=== PATIENT | female | born 1950 | race Hispanic/Latino ===

== ENCOUNTER 2017-09-07 22:10 | Observation (INO) | payer MEDICARE ==
[~2017-09-07] VITALS: Ht 154.9 cm; Wt 82.1 kg
[2017-09-07 22:23] LABS: APPEARANCE,URINE Cloudy (CLEAR); BILIRUBIN,URINE Negative (NEGATIVE); COLOR,URINE Yellow (YELLOW); GLUCOSE, URINE (UA) TRACE mg/dL (NEGATIVE); KETONES,URINE Negative (NEGATIVE); LEUKOCYTE ESTERASE ,URINE Moderate (NEGATIVE); NITRATE,URINE Positive (NEGATIVE); OCCULT BLOOD,URINE Small (NEGATIVE); PROTEIN,URINE Negative (NEGATIVE)
[2017-09-07 22:32] LABS: BACTERIA,URINE Moderate /HPF (None Seen); SQUAMOUS EPITHELIAL CELL,UR 0-2 /HPF (0-2)
[2017-09-07 22:40] LABS: BASOPHILS % (AUTO) 0.4 % (0.0-5.0); HEMATOCRIT 31.6 % (36-48); LYMPHOCYTES % (AUTO) 5.3 % (21.0-51.0); MEAN CORPUSCULAR HEMOGLOBIN 34.6 pg (27.0-33.0); MEAN CORPUSCULAR HGB CONC 34.6 g/dL (32.0-36.0); MONOCYTES % (AUTO) 10.4 % (3.0-13.0); NEUTROPHILS % (AUTO) 83.9 % (40.0-77.0); PLATELET COUNT (AUTO) 288 K/uL (130-400); RED BLOOD CELL COUNT(AUTO) 3.16 MIL/uL (4.00-5.50); WHITE BLOOD COUNT (AUTO) 25.2 K/uL (4.8-10.8)
[2017-09-07] MEDS ORDERED: ONDANSETRON HCL 4 MG/2 ML VIAL ONE (22:41)
[2017-09-07 22:51] LABS: CREATININE 1.5 mg/dL (0.5-1.5); POTASSIUM 4.2 mmol/L (3.5-5.1)
[2017-09-07 22:56] LABS: BILIRUBIN,TOTAL 0.3 mg/dL (0.2-1.0); TOTAL PROTEIN, SERUM 7.6 g/dL (6.0-8.3)
[2017-09-07] MEDS ORDERED: CEFTRIAXONE SODIUM 1 GM ONE (23:01)
[2017-09-07] MEDS ORDERED: FENTANYL CITRATE PF 50 MCG/1 ML 2ML VIAL ONE (23:03)
[2017-09-08] MEDS ORDERED: PHARMACY COMMUNICATION MISC SCH (02:00)
[2017-09-08] MEDS ORDERED: 1/2 NORMAL SALINE 1,000 ML IV SCH ×2 (02:00→03:30)
[2017-09-08 03:10] VITALS: BP 144/84
[2017-09-08] MEDS ORDERED: HYDR-3421 PO (03:41)
[2017-09-08] MEDS ORDERED: PANT40TA25 PO (03:41)
[2017-09-08] MEDS ORDERED: LEVO75 PO (03:41)
[2017-09-08] MEDS ORDERED: DAPS100T PO (03:46)
[2017-09-08] MEDS ORDERED: DILT120T PO (03:46)
[2017-09-08] MEDS ORDERED: LOSA50TA37 PO (03:46)
[2017-09-08] MEDS ORDERED: SITA1TAB6 PO (03:46)
[2017-09-08] MEDS ORDERED: DILT-36 PO (03:48)
[2017-09-08] MEDS ORDERED: CETI10TA57 PO (03:50)
[2017-09-08] MEDS ORDERED: NAPR220C15 PO (03:51)
[2017-09-08] MEDS ORDERED: DICL100G16 TP (03:53)
[2017-09-08] MEDS ORDERED: FERR250T2 PO (04:12)
[2017-09-08] MEDS ORDERED: HYDROXYZINE HCL 25 MG TABLET PO PRN (04:15)
[2017-09-08 04:59] LABS: BASOPHILS % (AUTO) 0.4 % (0.0-5.0); HEMATOCRIT 31.1 % (36-48); LYMPHOCYTES % (AUTO) 10.5 % (21.0-51.0); MEAN CORPUSCULAR HEMOGLOBIN 33.7 pg (27.0-33.0); MEAN CORPUSCULAR HGB CONC 33.9 g/dL (32.0-36.0); MEAN CORPUSCULAR VOLUME 99.2 fL (79-99); MONOCYTES % (AUTO) 10.3 % (3.0-13.0); NEUTROPHILS % (AUTO) 78.8 % (40.0-77.0); PLATELET COUNT (AUTO) 274 K/uL (130-400); RED BLOOD CELL COUNT(AUTO) 3.13 MIL/uL (4.00-5.50); WHITE BLOOD COUNT (AUTO) 18.2 K/uL (4.8-10.8)
[2017-09-08 05:10] LABS: CREATININE 1.1 mg/dL (0.5-1.5); POTASSIUM 3.8 mmol/L (3.5-5.1)
[2017-09-08] MEDS ORDERED: LEVOTHYROXINE 75 MCG TABLET PO SCH (07:30)
[2017-09-08] MEDS ORDERED: LINAGLIPTIN 5 MG TABLET PO SCH (08:00)
[2017-09-08] MEDS ORDERED: METFORMIN HCL 500 MG TABLET PO SCH (08:00)
[2017-09-08 08:22] VITALS: BP 139/75
[2017-09-08] MEDS ORDERED: LOSARTAN 50 MG TABLET PO SCH (09:00)
[2017-09-08] MEDS ORDERED: PANTOPRAZOLE SODIUM 40 MG TABLET.DR PO SCH (09:00)
[2017-09-08] MEDS ORDERED: NAPROXEN 250 MG TAB PO PRN (09:00)
[2017-09-08] MEDS ORDERED: DILTIAZEM HCL 120 MG CAP.SR.24H PO SCH (09:00)
[2017-09-08] MEDS ORDERED: FERROUS SULFATE 325 MG TABLET.DR PO SCH (09:00)
[2017-09-08] MEDS ORDERED: CETIRIZINE HCL 5 MG TABLET PO PRN (09:00)
[2017-09-08] MEDS ORDERED: VOLTAREN PO PRN (09:00)
[2017-09-08] MEDS ORDERED: DAPSONE 25 MG TAB PO SCH (09:00)
[2017-09-08] MEDS ORDERED: CEFTRIAXONE SODIUM 1 GM IV SCH (23:00)
== END 2017-09-08 09:40 | disposition home or self-care (01) ==
LOC: EDH 22:10 → EDHIP 09-08 00:50 → 4AH 09-08 03:16
PROVIDERS: ADMIT Internal Medicine; ATTEND Internal Medicine
DX: N12 Tubulo-interstitial nephritis, not specified as acute or chronic (principal); E11.9 Type 2 diabetes mellitus without complications; E03.9 Hypothyroidism, unspecified; E78.5 Hyperlipidemia, unspecified; I10 Essential (primary) hypertension; K90.0 Celiac disease
CPT/HCPCS: 36415 ×2; 74176; 80048; 80053; 81001; 82948; 83690; 85025 ×2; 87088; 87186; 99285; G0378 ×9; J0696; J2405; J3010

== ENCOUNTER → 2020-06-24 | Outpatient (CLI) | payer MEDICARE ==
[~2020-06-24] MED LIST: ATOR10 PO; CETI10TA57 PO; DAPS100T PO; DICL100G16 TP; DILT-36 PO; HYDR-3421 PO; LEVO75 PO; LOSA50TA64 PO; NAPR220C15 PO; PANT40TA54 PO; SITA1TAB6 PO
== END | disposition home or self-care (01) ==
LOC: OIH 13:26
PROVIDERS: ATTEND Internal Medicine
DX: J44.9 Chronic obstructive pulmonary disease, unspecified (principal); Z90.49 Acquired absence of other specified parts of digestive tract
CPT/HCPCS: 71046

== ENCOUNTER 2022-11-04 22:40 | Emergency (ER) | payer MEDICARE ==
[~2022-11-04] VITALS: Ht 152.4 cm; Wt 71.3 kg
[2022-11-04 23:09] LABS: BASOPHILS % (AUTO) 1.3 % (0.0-5.0); EOSINOPHILS # (AUTO) 0.91 K/uL (0.00-0.70); EOSINOPHILS % (AUTO) 11.4 % (0.0-8.0); HEMATOCRIT 32.3 % (36-48); IMMATURE GRANULOCYTE ABSOLUTE 0.02 K/uL (0-1); LYMPHOCYTES # (AUTO) 2.2 K/uL (1.0-4.8); LYMPHOCYTES % (AUTO) 27.5 % (21.0-51.0); MEAN CORPUSCULAR HEMOGLOBIN 32.4 pg (27.0-33.0); MEAN CORPUSCULAR HGB CONC 33.1 g/dL (32.0-36.0); MEAN CORPUSCULAR VOLUME 97.9 fL (79-99); MONOCYTES # (AUTO) 0.9 K/uL (0.1-1.0); MONOCYTES % (AUTO) 11.4 % (3.0-13.0); NEUTROPHILS # (AUTO) 3.9 K/uL (1.8-7.7); NEUTROPHILS % (AUTO) 48.1 % (40.0-77.0); PLATELET COUNT (AUTO) 191 K/uL (130-400); RED CELL DISTRIBUTION WIDTH 12.4 % (11.0-15.5)
[2022-11-04 23:22] LABS: CREATININE 2.9 mg/dL (0.5-1.5); POTASSIUM 4.9 mmol/L (3.5-5.1)
[2022-11-04 23:28] LABS: ALBUMIN 3.7 g/dL (3.5-5.0); BILIRUBIN,TOTAL 0.3 mg/dL (0.2-1.0); TOTAL PROTEIN, SERUM 7.1 g/dL (6.0-8.3)
[2022-11-05] MEDS ORDERED: LIDOCAINE HCL 2% VISCOUS 15 ML UDCUP PO ONE
[2022-11-05] MEDS ORDERED: MAG/ALUM/SIMETH 30 ML UDCUP PO ONE
[2022-11-05] MEDS ORDERED: MAG-55 PO (01:55)
[2022-11-05 02:07] VITALS: BP 136/62; PULSE 68; RESP 14; O2SAT 99
== END 2022-11-05 02:18 | disposition home or self-care (01) ==
LOC: EDH 22:40
DX: K21.9 Gastro-esophageal reflux disease without esophagitis (principal); R07.89 Other chest pain; E11.9 Type 2 diabetes mellitus without complications; I10 Essential (primary) hypertension; Z79.899 Other long term (current) drug therapy; Z88.0 Allergy status to penicillin; Z88.1 Allergy status to other antibiotic agents; Z88.5 Allergy status to narcotic agent; Z90.49 Acquired absence of other specified parts of digestive tract
CPT/HCPCS: 36415; 71045; 80053; 84484; 85025; 93005

== ENCOUNTER → 2023-02-14 | Outpatient (CLI) | payer MEDICARE, OTHER ==
[~2023-02-14] MED LIST changes: +MAG-55 PO
== END | disposition home or self-care (01) ==
LOC: RAH 09:56
PROVIDERS: ATTEND Internal Medicine Gastroenterology
DX: K44.9 Diaphragmatic hernia without obstruction or gangrene (principal); R14.0 Abdominal distension (gaseous); K21.9 Gastro-esophageal reflux disease without esophagitis
CPT/HCPCS: 74240

== ENCOUNTER → 2023-12-14 | Outpatient (CLI) | payer MEDICARE, OTHER ==
[2023-12-14 13:58] LABS: BASOPHILS # (AUTO) 0.08 K/uL (0.00-0.20); BASOPHILS % (AUTO) 1.4 % (0.0-5.0); EOSINOPHILS # (AUTO) 0.31 K/uL (0.00-0.70); EOSINOPHILS % (AUTO) 5.5 % (0.0-8.0); HEMATOCRIT 33.9 % (36-48); IMMATURE GRANULOCYTE ABSOLUTE 0.01 K/uL (0-1); LYMPHOCYTES # (AUTO) 1.7 K/uL (1.0-4.8); LYMPHOCYTES % (AUTO) 30.4 % (21.0-51.0); MEAN CORPUSCULAR HGB CONC 32.2 g/dL (32.0-36.0); MEAN CORPUSCULAR VOLUME 99.4 fL (79-99); MONOCYTES # (AUTO) 0.6 K/uL (0.1-1.0); MONOCYTES % (AUTO) 10.8 % (3.0-13.0); NEUTROPHILS # (AUTO) 2.9 K/uL (1.8-7.7); NEUTROPHILS % (AUTO) 51.7 % (40.0-77.0); PLATELET COUNT (AUTO) 200 K/uL (130-400); RED BLOOD CELL COUNT(AUTO) 3.41 MIL/uL (4.00-5.50); WHITE BLOOD COUNT (AUTO) 5.6 K/uL (4.8-10.8)
[2023-12-14 14:24] LABS: ALBUMIN 3.7 g/dL (3.5-5.0); BILIRUBIN,TOTAL 0.4 mg/dL (0.2-1.0); CREATININE 1.5 mg/dL (0.5-1.0); POTASSIUM 4.2 mmol/L (3.5-5.1); TOTAL PROTEIN, SERUM 7.1 g/dL (6.0-8.3)
== END | disposition home or self-care (01) ==
LOC: LAB 12:44
PROVIDERS: ATTEND Internal Medicine Gastroenterology
DX: R10.30 Lower abdominal pain, unspecified (principal)
CPT/HCPCS: 36415; 80053; 85025

== ENCOUNTER → 2023-12-19 | Outpatient (CLI) | payer MEDICARE, OTHER | END | disposition home or self-care (01) | LOC: RAH 09:11 | PROVIDERS: ATTEND Internal Medicine | DX: K57.30 Diverticulosis of large intestine without perforation or abscess without bleeding (principal); N32.89 Other specified disorders of bladder; I70.0 Atherosclerosis of aorta; M47.815 Spondylosis without myelopathy or radiculopathy, thoracolumbar region | CPT/HCPCS: 74176 ==

== ENCOUNTER → 2024-06-03 | Outpatient (CLI) | payer OTHER ==
[~2024-06-03] MED LIST changes: -CETI10TA57 PO; -DAPS100T PO; -DICL100G16 TP; -DILT-36 PO; +DONE-51 PO; -HYDR-3421 PO; -NAPR220C15 PO; +SULF500T75 PO
--- NOTE | 2024-06-03 15:31 | HMCIMG ---
CT HEART SAVER PROMOTIONAL HISTORY: Calcium scoring COMPARISON: None TECHNIQUE: Computed tomography of the heart was performed with ECG gating and suspended respiration. Postprocessing was performed on a computer workstation to obtain diastolic phase images, determine calcium score and provide a quantitative assessment of extent of disease. This CT included only the heart. HeartSaver score is 681.1. Please see cardiac calcium score report. The available CT chest images show no acute finding. CT was performed with one or more following dose reduction techniques: automated exposure control, adjustment of the mA and kv according to patient's size, or use of a iterative reconstruction technique.
== END | disposition home or self-care (01) ==
LOC: RAH 15:00
PROVIDERS: ATTEND Internal Medicine Cardiovascular Disease
DX: Z13.6 Encounter for screening for cardiovascular disorders (principal)
CPT/HCPCS: 75571

== ENCOUNTER → 2024-06-12 | Outpatient (CLI) | payer MEDICARE ==
--- NOTE | 2024-06-12 17:10 | HMCSR ---
APPROVED REPORT Laterality: Bilateral Indications Atherosclerosis i25.10 Doppler Spectral Velocity Analysis PSV / EDVPSV / EDV ECA (R) 82 / cm/sECA (L) 63 / cm/s dICA (R) 134 / 38 cm/sdICA (L) 116 / 34 cm/s Ana (R) 97 / 29 cm/smICA (L) 96 / 26 cm/s pICA (R) 56 / 20 cm/spICA (L) 59 / 20 cm/s dCCA (R) 68 / 19 cm/sdCCA (L) 76 / 20 cm/s mCCA (R) 61 / 15 cm/smCCA (L) 79 / 21 cm/s pCCA (R) 88 / 23 cm/spCCA (L) 62 / 16 cm/s Vert (R) 60 / cm/sVert (L) 58 / cm/s Subl. (R) 189 / cm/sSubl. (L) 145 / cm/s ICA/CCA 1.52ICA/CCA 1.47 Technologist Impression Minimal plaque noted in the bilateral carotids, without hemodynamic significance. Bilateral vertebral arteries appear antegrade. Conclusion As above. Conclusion As above.
== END | disposition home or self-care (01) ==
LOC: SHCH 15:39
PROVIDERS: ATTEND Internal Medicine Cardiovascular Disease
DX: I25.10 Atherosclerotic heart disease of native coronary artery without angina pectoris (principal); I70.90 Unspecified atherosclerosis
CPT/HCPCS: 93880

== ENCOUNTER → 2024-07-03 | Outpatient (CLI) | payer MEDICARE ==
[2024-07-03 16:40] LABS: ALBUMIN 3.8 g/dL (3.5-5.0); BILIRUBIN,TOTAL 0.2 mg/dL (0.2-1.0); CREATININE 1.6 mg/dL (0.5-1.0); POTASSIUM 4.3 mmol/L (3.5-5.1); TOTAL PROTEIN, SERUM 7.6 g/dL (6.0-8.3)
== END | disposition home or self-care (01) ==
LOC: LAB 15:10
PROVIDERS: ATTEND Nurse Practitioner Acute Care
DX: I10 Essential (primary) hypertension (principal)
CPT/HCPCS: 36415; 80053

== ENCOUNTER 2024-12-28 11:31 | Emergency (ER) | payer MEDICARE ==
[~2024-12-28] VITALS: Ht 154.9 cm; Wt 67.1 kg
[~2024-12-28 11:31] MED LIST changes: -DONE-51 PO; +DONE5TAB33 PO; -MAG-55 PO; +OMEP40CA21 PO; -PANT40TA54 PO
--- NOTE | 2024-12-28 11:49 | ERN ---
General Chief Complaint: Nausea,Vomiting,Diarrhea Stated Complaint: N/V/D Time Seen by MD: 11:33 History of Present Illness Initial Comments 74-year-old female who presents for nausea, lower abdominal discomfort, loose stools, and urinary frequency since yesterday. No fevers or chills. No flank pain. P.o. tolerant. No vaginal bleeding or discharge. She reports she has had urinary tract infection before in the past and feels like she may be developing one. Allergies: Coded Allergies: erythromycin base (Unverified Allergy, Severe, NAUSEA, 09/08/17) Penicillins (Verified Allergy, Unknown, 09/08/17) codeine (Verified Allergy, Unknown, 09/08/17) Home Meds Active Scripts Ondansetron (Ondansetron Odt) 4 Mg Tab.rapdis, 1 TAB PO Q6HPRN PRN for nausea/vomiting for 4 Days, #16 TAB 0 Refills Prov:GUNJAN WYNN DO 12/28/24 Metronidazole (Metronidazole) 375 Mg Capsule, 1 CAP PO TID for 7 Days, #21 CAP 0 Refills Prov:GUNJAN WYNN DO 12/28/24 Levofloxacin (Levaquin 750Mg Tabs) 750 Mg Tablet, 1 TAB PO DAILY for 7 Days, #7 TAB 0 Refills Prov:GUNJAN WYNN DO 12/28/24 Reported Medications Omeprazole (Omeprazole) 40 Mg Capsule.dr, 40 MG PO DAILY, CAP 09/04/24 Donepezil HCl (Donepezil HCl) 5 Mg Tablet, 5 MG PO HS, TAB 09/04/24 Sulfadiazine (Sulfadiazine) 500 Mg Tab, 1000 MG PO BID, TAB 01/12/24 Atorvastatin Calcium (LIPITOR) 20 Mg Tab, 20 MG PO DAILY, TAB 09/16/18 Losartan Potassium (Losartan Potassium) 50 Mg Tablet, 50 MG PO HS, TAB 09/08/17 Sitagliptin Phos/Metformin HCl (Janumet 50-1,000 mg Tablet) 1 Each Tablet, 1 TAB PO BIDMEALS 09/08/17 Levothyroxine Sodium (Levothroid/Synthroid) 75 Mcg Tab, 75 MCG PO ACBKFST 09/08/17 Past Medical History Past Medical History: Diabetes-Type II, High Cholesterol, Hypertension, Hypothyroid Medical History Other: CELIAC DISEASE Past Surgical History: Hysterectomy, Cholecystectomy Family History Family History: Negative Social History Social History: Negative, Lives with family Female( History) History: Not Applicable ROS Dictation CONSTITUTIONAL: No chills, no fever, no weakness, no diaphoresis, no malaise. HEAD/FACE: No signs of trauma. EENT: No eye pain, no blurred vision, no tearing, no double vision, no ear pain, no ear discharge, no nose pain, no nasal congestion, no throat pain, no throat swelling, no mouth pain. RESPIRATORY: No cough, no orthopnea, no SOB, no stridor, no wheezing. CARDIOVASCULAR: No chest pain, no edema, no palpitations, no syncope. GASTROINTESTINAL/ABDOMINAL: Nausea, lower abdominal pain, loose stools GENITOURINARY: Increased frequency MUSCULOSKELETAL: No back pain, no gout, no joint pain, no joint swelling, no muscle pain, no muscle stiffness, no neck pain. INTEGUMENTARY: No change in color, no change in hair/nails, no dryness, no l esion, no lumps, no rash. NEUROLOGICAL/PSYCH: No anxiety, not depressed, no emotional problem, no headache, no numbness, no pre-existing deficit, no history of seizures, no tremors, no weakness. HEMATOLOGIC/LYMPHATIC: Not anemic, no history of blood clots, no apparent bleeding, no bruising, glands not swollen. All Systems Negative, Except as Noted. Physical Exam Physical Exam Dictation VITAL SIGNS: Reviewed. GENERAL APPEARANCE: Alert, oriented x3, no acute distress, obese. HEAD AND FACE: Non-traumatic. EYES: PERRL, pink conjunctivas, eyelid no trauma, anterior chamber clear. EARS: Pinnas intact and no signs of trauma or erythema. Ear canals clear and no discharge. TMs no erythema. NOSE: No discharge, no bleeding. OROPHARYNX: Mouth normal, teeth no caries, tongue pink. Pharynx clear, no erythema. Tonsils no exudates, no abscesses noted. Mucous membrane moist. NECK: Supple, non-tender, no thyromegaly, no masses, no JVD, no bruits. BREAST: Deferred. CHEST: No tenderness, no crepitus, no paradoxical movement, no retractions. LUNGS: Clear, well-ventilated, symmetric, no rales, no wheezing, no rhonchi, no stridor, good breath sounds bilaterally. HEART: Regular rate, regular rhythm, no murmur, no gallops. VASCULAR: No peripheral edema. ABDOMEN: Soft, positive bowel sounds, nondistended, no guarding, nontender, no rebound, no masses no hepatomegaly, no splenomegaly, no Goodman's sign, no hernias. RECTAL: Deferred. GENITAL: Deferred. NEUROLOGICAL: Normal speech, gross motor function intact, gross sensory function intact. MUSCULOSKELETAL: Neck nontender, full range of motion, back nontender, full range of motion. EXTREMITIES: Nontender, full range of motion. SKIN: Color pink, dry, no turgor, no rash, no lacerations, no abrasions, no contusions. LYMPHATICS: Deferred. Results Laboratory and Microbiology Lab and Micro Result Laboratory Tests Test 12/28/24 11:55 12/28/24 12:45 White Blood Count 5.4 K/uL (4.8-10.8) Red Blood Count 3.61 MIL/uL (4.00-5.50) L Hemoglobin 12.1 g/dL (12.0-16.0) Hematocrit 35.2 % (36-48) L Mean Corpuscular Volume 97.5 fL (79-99) Mean Corpuscular Hemoglobin 33.5 pg (27.0-33.0) H Mean Corpuscular Hemoglobin Concent 34.4 g/dL (32.0-36.0) Red Cell Distribution Width 12.9 % (11.0-15.5) Platelet Count 207 K/uL (130-400) Mean Platelet Volume 10.1 fL (7.5-10.5) Immature Granulocyte % (Auto) 0.4 % (0-1) Neutrophils (%) (Auto) 55.2 % (40.0-77.0) Lymphocytes (%) (Auto) 30.6 % (21.0-51.0) Monocytes (%) (Auto) 10.6 % (3.0-13.0) Eosinophils (%) (Auto) 1.9 % (0.0-8.0) Basophils (%) (Auto) 1.3 % (0.0-5.0) Neutrophils # (Auto) 3.0 K/uL (1.8-7.7) Lymphocytes # (Auto) 1.7 K/uL (1.0-4.8) Monocytes # (Auto) 0.6 K/uL (0.1-1.0) Eosinophils # (Auto) 0.10 K/uL (0.00-0.70) Basophils # (Auto) 0.07 K/uL (0.00-0.20) Absolute Immature Granulocyte (auto 0.02 K/uL (0-1) Nucleated Red Blood Cells 0.0 % (0.0-0.19) Sodium Level 136 mmol/L (136-145) Potassium Level 4.1 mmol/L (3.5-5.1) Chloride Level 104 mmol/L (101-111) Carbon Dioxide Level 25 mmol/L (21-32) Blood Urea Nitrogen 37 mg/dL (7-18) H Creatinine 1.8 mg/dL (0.5-1.0) H Glomerular Filtration Rate Calc 29 mL/min (>90) Random Glucose 172 mg/dL (70-105) H Lactic Acid Level 2.2 mmol/L (0.8-2.5) Total Calcium 9.2 mg/dL (8.5-10.1) Total Bilirubin 0.4 mg/dL (0.2-1.0) Direct Bilirubin 0.1 mg/dL (0.0-0.3) Aspartate Amino Transf (AST/SGOT) 16 U/L (10-37) Alanine Aminotransferase (ALT/SGPT) 10 U/L (12-78) L Alkaline Phosphatase 142 U/L (50-136) H Troponin I High Sensitivity 6 ng/L (4-50) Total Protein 7.3 g/dL (6.0-8.3) Albumin 3.6 g/dL (3.5-5.0) Lipase 55 U/L (16-77) Urine Color COLORLESS (YELLOW) Urine Appearance CLEAR (CLEAR) Urine pH 5.0 (5.0-8.0) Urine Specific Stone 1.006 (1.001-1.031) Urine Protein NEGATIVE mg/dL (NEGATIVE) Urine Glucose (UA) >=1000 mg/dL (NEGATIVE) H Urine Ketones NEGATIVE mg/dL (NEGATIVE) Urine Occult Blood NEGATIVE (NEGATIVE) Urine Nitrate NEGATIVE (NEGATIVE) Urine Bilirubin NEGATIVE mg/dL (NEGATIVE) Urine Urobilinogen 0.2 mg/dL (0.2-1.0) Urine Leukocyte Esterase NEGATIVE Babita/uL Urine RBC 0-1 /HPF (0-1) Urine WBC 2-5 /HPF (0-1) H Urine Bacteria FEW /HPF (None Seen) MDM CC: Generalized abdominal discomfort, nausea, increased frequency, loose s tools Historian: Patient Comorbidities: Hypertension, GERD, diabetes, hypothyroidism Limitations by social determinants of health: None Differential diagnosis: Diverticulitis, UTI, Surgical pathology, sepsis, other Vital signs: Stable, remained stable in the ER Labs no leukocytosis, no anemia, chemistries stable, liver enzymes normal, troponin normal, lactic acid normal. Creatinine 1.8 which is baseline for patient based on previous labs. Glucose stable. Urinalysis unremarkable. CT abdomen and pelvis no acute abnormalities Symptoms most consistent with diverticulitis Given a dose of IV antibiotics We will DC with Levaquin and Flagyl since the patient is allergic to penicillins. Patient agrees with the plan. ED Course Orders Procedure Category Date Status Time Cbc With Differential LAB 12/28/24 Complete 11:41 Troponin I High LAB 12/28/24 Complete Sensitivity 11:41 Urinalysis Profile LAB 12/28/24 Complete 11:41 12 Lead Ekg Tracing- EKG 12/28/24 Resulted Technical 11:41 Lactated Ringers PHA 12/28/24 Complete 1000ml (Lactated 12:00 Ondansetron 4mg Inj PHA 12/28/24 Complete (Zofran 4mg Inj) 12:00 Lipase LAB 12/28/24 Complete 11:41 Basic Metabolic Panel LAB 12/28/24 Complete 11:41 Hepatic Function Panel LAB 12/28/24 Complete 11:41 Lactic Acid LAB 12/28/24 Complete 11:44 Blood Cult PERRY 12/28/24 In Process 11:44 Iohexol (Omnipaque) PHA 12/28/24 Complete 12:18 Ct Abdomen/Pelvis W/O CT 12/28/24 Resulted Contrast 12:39 Metronidazole PHA 12/28/24 Complete 500mg/100ml Bag 14:00 Lactic Acid (Removed) LAB 12/28/24 Logged 15:23 Current Medications Medications (Trade) Dose Ordered Sig/Esteban Route PRN Reason Start Time Stop Time Status Last Admin Dose Admin Iohexol (Omnipaque) 75 ml STK-MED ONCE IV 12/28/24 12:18 12/28/24 12:18 DC Lactated Ringer's 1,000 ml @ 0 mls/hr ONCE ONCE IV 12/28/24 12:00 12/28/24 12:01 DC 12/28/24 12:10 Metronidazole/ Sodium Chloride (flaGYL) 500 mg ONCE ONCE IV 12/28/24 14:00 12/28/24 14:01 DC 12/28/24 13:57 Ondansetron HCl (zoFRAN 4MG INJ) 4 mg ONCE ONCE IVP 12/28/24 12:00 12/28/24 12:01 DC 12/28/24 12:10 Vital Signs Date Time Temp Pulse Resp B/P (MAP) Pulse Ox O2 Delivery O2 Flow Rate FiO2 12/28/24 14:43 98.1 84 20 131/56 99 Room Air* 0 21 12/28/24 13:30 87 20 134/56 96 Room Air* 0 21 12/28/24 12:05 97.5 70 20 154/61 99 Room Air* 0 21 12/28/24 11:32 97.2 71 19 147/51 99 Room Air 0 DX & DISP Disposition: Discharge Departure Impression: Primary Impression: Diverticulitis Condition: Stable Scripts Ondansetron (Ondansetron Odt) 4 Mg Tab.rapdis 1 TAB PO Q6HPRN PRN for nausea/vomiting for 4 Days, #16 TAB 0 Refills Prov: GUNJAN WYNN DO 12/28/24 Metronidazole (Metronidazole) 375 Mg Capsule 1 CAP PO TID for 7 Days, #21 CAP 0 Refills Prov: GUNJAN WYNN DO 12/28/24 Levofloxacin (Levaquin 750Mg Tabs) 750 Mg Tablet 1 TAB PO DAILY for 7 Days, #7 TAB 0 Refills Prov: GUNJAN WYNN DO 12/28/24 Additional Instructions: Your symptoms are most consistent with mild diverticulitis, which is inflammation/infection of the colon. Your lab work is unremarkable. The urinalysis is unremarkable. I have prescribed levofloxacin and metronidazole, which are antibiotics for this condition. Please take as prescribed. I have prescribed ondansetron dissolvable tabs to use as needed for nausea and vomiting. Be sure to drink plenty of liquids. An electrolyte solution such as Gatorade has a good choice. Please follow up with the primary doctor later this week for re-evaluation. Return to the emergency department as needed. Referrals: ASHLEY DYER MD (PCP) GUNJAN WYNN DO Dec 28, 2024 11:49
--- NOTE | 2024-12-28 11:59 | EKG ---
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
--- NOTE | 2024-12-28 12:01 | NUR ---
PENDING GFR RESULTS, IV SITE, & CONSENT FOR CT EXAM.
[2024-12-28] MEDS: LACTATED RINGERS 1000ML 1,000 ML IV ONE (12:10)
[2024-12-28 12:18] LABS: IMMATURE GRANULOCYTE ABSOLUTE 0.02 K/uL (0-1); NUCLEATED RED BLOOD CELLS 0.0 % (0.0-0.19); PLATELET COUNT (AUTO) 207 K/uL (130-400); RED BLOOD CELL COUNT(AUTO) 3.61 MIL/uL (4.00-5.50); RED CELL DISTRIBUTION WIDTH 12.9 % (11.0-15.5); WHITE BLOOD COUNT (AUTO) 5.4 K/uL (4.8-10.8)
[2024-12-28] MEDS ORDERED: IOHEXOL-350 75 ML VIAL IV ONE (12:18)
[2024-12-28 12:38] LABS: ASPARTATE AMINOTRANSFERASE 16.0 U/L (10-37); CREATININE 1.8 mg/dL (0.5-1.0); GLOMERULAR FILTR. RATE CALC 29.0 mL/min (>90); GLUCOSE,RANDOM 172.0 mg/dL (70-105); SODIUM SERUM 136.0 mmol/L (136-145); TOTAL PROTEIN, SERUM 7.3 g/dL (6.0-8.3); UREA NITROGEN, BLOOD 37.0 mg/dL (7-18)
[2024-12-28 13:12] LABS: APPEARANCE,URINE CLEAR (CLEAR); GLUCOSE, URINE (UA) >=1000 mg/dL (NEGATIVE); LEUKOCYTE ESTERASE ,URINE NEGATIVE Leu/uL (NEGATIVE); NITRATE,URINE NEGATIVE (NEGATIVE); OCCULT BLOOD,URINE NEGATIVE (NEGATIVE)
[2024-12-28 13:14] LABS: ADD UA MICROSCOPIC YES
--- NOTE | 2024-12-28 14:30 | HMCIMG ---
EXAM: CT Abdomen and Pelvis Without IV contrast CLINICAL HISTORY: lower abd pain, ckd TECHNIQUE: Axial computed tomography images of the abdomen and pelvis without intravenous contrast. CONTRAST: No IV contrast. COMPARISON: None provided. FINDINGS: LUNG BASES: 5.3 mm calcified nodule in the posterior basal segment of the right lower lobe. Fibroatelectatic bands in the bilateral lower lobes. No pleural effusions are seen. LIVER: Unremarkable. GALLBLADDER AND BILE DUCTS: Post-cholecystectomy status. No biliary ductal dilatation is evident. PANCREAS: Unremarkable. SPLEEN: Unremarkable. ADRENAL GLANDS: Unremarkable. KIDNEYS, URETERS, AND BLADDER: The kidneys appear within normal limits. There is no hydronephrosis or hydroureter. No urinary calculi are seen. Bilateral perinephric fat stranding that is concerning for renal parenchymal disease. STOMACH AND BOWEL: Unremarkable appearance of the stomach and bowel. Abundant colonic fecal matter may reflect constipation. No evidence of bowel obstruction. No evidence suggesting enteritis or colitis. Colonic diverticulosis without CT evidence for diverticulitis. APPENDIX: No evidence of acute appendicitis on CT examination. PERITONEUM: No free fluid. No free air. LYMPH NODES: No lymphadenopathy is evident. REPRODUCTIVE: Post-hysterectomy status. VASCULATURE: No evidence of abdominal aortic aneurysm. Atherosclerotic changes in the aorta and its branches. BONES: No aggressive appearing osseous lesion. No acute osseous pathology evident. Grade I anterolisthesis of L4 over the L5 vertebra. Mild degenerative changes of the spine. IMPRESSION: 1. No acute intraabdominal or pelvic pathology. 2. Bilateral perinephric fat stranding, concerning for renal parenchymal disease. 3. Colonic diverticulosis without CT evidence for diverticulitis. 4. Grade I anterolisthesis of L4 over L5. /[place]
[2024-12-28] MEDS ORDERED: METR375C7 PO (14:37)
[2024-12-28] MEDS ORDERED: LEVO750T68 PO (14:37)
[2024-12-28] MEDS ORDERED: ONDA-243 PO (14:37)
[2024-12-28 14:43] VITALS: BP 131/56; PULSE 84; RESP 20; TEMP 98; O2SAT 99
== END 2024-12-28 14:53 | disposition home or self-care (01) ==
LOC: EDH 11:31
DX: K57.32 Diverticulitis of large intestine without perforation or abscess without bleeding (principal); K21.9 Gastro-esophageal reflux disease without esophagitis; E03.9 Hypothyroidism, unspecified; E78.00 Pure hypercholesterolemia, unspecified; I12.9 Hypertensive chronic kidney disease with stage 1 through stage 4 chronic kidney disease, or unspecified chronic kidney disease; E11.22 Type 2 diabetes mellitus with diabetic chronic kidney disease; N18.30 Chronic kidney disease, stage 3 unspecified; Z88.1 Allergy status to other antibiotic agents; Z88.0 Allergy status to penicillin; Z88.5 Allergy status to narcotic agent; Z79.899 Other long term (current) drug therapy; Z79.84 Long term (current) use of oral hypoglycemic drugs; Z90.49 Acquired absence of other specified parts of digestive tract; Z90.710 Acquired absence of both cervix and uterus; Z87.440 Personal history of urinary (tract) infections
CPT/HCPCS: 99285; 74176; 96374; 96361; 96375; 80076; 84484; 80048; 83690; 85025; 87040 ×2; 83605; 81001; 36415; 93005; J7120; J2405; J3490; Q9967